=== PATIENT | female | born 1980 | race Caucasian/White ===

== ENCOUNTER 2018-12-08 06:12 | Emergency (ER) | payer SELFPAY ==
[2018-12-08 06:13] VITALS: BP 158/84; PULSE 99; RESP 16; TEMP 35.6; O2SAT 98; BMI 30.7
--- NOTE | 2018-12-08 06:34 | ED.VISSUMM ---
- ER Visit Summary Date of Service: 12/08/18 Chief Complaint: Dental block History of Present Illness: The patient is a 37 F who presents with dental pain. She does have a prior history of dental problems prior dental extractions. She sees the [facility]. Complains of left upper dental pain for the past 3 days. She has never had pain this severe. She also developed facial swelling. She states she wanted to try to wait until she could see the dentist but due to worsening symptoms presenting here. She has been taking Tylenol and ibuprofen. She reports subjective fevers. Physical Examination: Afebrile vitals unremarkable Patient has focal dental decay with dental tenderness on percussion of the left first maxillary premolar there is associated facial swelling, no focal dental abscess amenable to incision and drainage in the emergency department at this time Heart regular rate and rhythm Lungs are clear Test Results: Not indicated Emergency Department Course and Treatment: Patient was prescribed penicillin VK and [place]. She was offered a dental block here for acute pain control which she agreed to. Local supraperiosteal dental injection performed with Marcaine dental cartridge. Patient had a pain with injection but this was otherwise well-tolerated. Treatment Plan: [] Disposition: Discharge Impression: Dental abscess Dental block This note was generated with [employer] dictation software. It may contain incorrect words, spelling, and punctuation that were not noted in review of the chart prior to signing ED Disposition - Plan for ED Patient: Referrals: Claudia Goldsmith [Primary Care Provider] -
--- NOTE | 2018-12-08 06:38 | DCINST.ED_ITS ---
ED Disposition - Plan for ED Patient: Instructions: ED Abscess Dental Prescriptions: Hydrocodone Bitart/Apap 5-325 [[place] 5MG-325MG] 1 tab PO Q6H PRN PRN 3 Days #10 tab PRN Reason: Pain Penicillin V Potassium 500 mg PO 4X/DAY #40 tab Referrals: Claudia Goldsmith [Primary Care Provider] -
[2018-12-08 06:56] VITALS: RESP 16
== END 2018-12-08 06:57 | disposition home or self-care (01) ==
PROVIDERS: Emergency Provider Emergency Medicine
DX: K04.7 Periapical abscess without sinus (principal); Z72.0 Tobacco use; K02.9 Dental caries, unspecified
CPT/HCPCS: 64402; 99282

== ENCOUNTER 2019-11-03 07:05 | Emergency (ER) | payer MEDICAID, SELFPAY ==
[2019-11-03 07:07] VITALS: BP 151/86; PULSE 95; RESP 16; TEMP 36; O2SAT 99; BMI 36.2
--- NOTE | 2019-11-03 07:20 | CT_ITS ---
STUDY: CT ABDOMEN AND PELVIS WITHOUT CONTRAST REASON FOR EXAM: Female, 38 years old. RT FLANK AND RUQ PAIN. No hx cancer or diabetes. Prior and tubal ligation(clamps) RADIATION DOSAGE (If Supplied By Facility): CTDIvol = ( 22.14 ) mGy, DLP = ( 1134.07 ) mGycm TECHNIQUE: Transaxial images were obtained from the dome of the diaphragm to the symphysis pubis without oral contrast, and without intravenous contrast. Sagittal and coronal images were reconstructed. Individualized dose optimization techniques were used for this CT. COMPARISON: None. FINDINGS: The visualized lung bases are unremarkable. The visualized portions of the heart are within normal limits. Normal liver. There are multiple gallstones. Normal spleen. Normal pancreas. Normal bilateral adrenal glands. Normal right kidney. Normal left kidney. There is a small hiatal hernia. Normal small intestine. Normal colon. The appendix is visualized and appears normal. There is minimal atherosclerotic calcification of the abdominal aorta, without a demonstrated aneurysm. Normal inferior vena cava. Normal retroperitoneum. Normal urinary bladder. Evidence of bilateral tubal ligation. Normal abdominal wall. Normal osseous structures. CT/Abdomen/Pelvis without Cont IMPRESSION: Multiple gallstones. Electronically Signed: Glenn Salcedo, at 8:43 EST , Service support ,
--- NOTE | 2019-11-03 07:21 | ED.DCSUM_ITS ---
- ER Visit Summary Date of Service: 11/03/19 Chief Complaint: Right flank pain History of Present Illness: The patient is a 38 F who presents with right flank pain that has been getting worse over the past 4 days. Patient describes the pain as a constant dull ache but stabbing at times. Patient states the pain is localized to the right flank. Patient states the pain is worse with movement and with coughing. Patient admits to an episode of nausea this morning. Patient denies any vomiting. Patient denies any diarrhea, melena, or hematochezia. Patient denies any dysuria or hematuria. Patient states her last menstrual period was 3 weeks ago. Physical Examination: Vital signs are stable. Patient is afebrile. Patient is in no acute distress. Oral mucosa is pink and moist. Neck is supple. Trachea is midline. There is no JVD. Heart was regular rate and rhythm. Lungs are clear and equal bilaterally. Abdomen is soft. Bowel sounds are normal. There is no tenderness. There is no rebound or guarding. There is some mild right CVA tenderness. There is no edema or ecchymosis. Cranial nerves II through XII are intact. There are no focal motor or sensory deficits noted. Test Results: CBC and basic metabolic profile were within normal limits. Urinalysis shows leukocyte esterase of 100 with a white blood cell count of 10- 25. hCG was negative. CT scan of the abdomen pelvis was obtained. There are multiple gallstones but there are no renal or ureteral calculi. There is no other acute intra-abdominal process. Emergency Department Course and Treatment: Patient was given IV fluids, Toradol, and Zofran. Patient was feeling better on reevaluation. Patient was advised of her findings. Patient was instructed to avoid fried foods, greasy foods, and fatty foods. Patient was instructed to follow-up with her primary care physician in 3 to 5 days for reevaluation. Patient was given a prescription for short course of [place]. Patient understood and was agreeable with the plan. All questions were answered. Disposition: Discharge home Impression: 1. Cholelithiasis 2. Right flank pain This note was generated with [employer] dictation software. It may contain incorrect words, spelling, and punctuation that were not noted in review of the chart prior to signing ED Disposition - Plan for ED Patient: Disposition: Home or Assisted Living Diagnosis: Cholelithiasis Instructions: BILIARY COLIC with Gallstone (Confirmed) Prescriptions: Hydrocodone Bitart/Apap 5-325 [[place] 5MG-325MG] 1 tab PO Q6H PRN PRN 3 Days #10 tab PRN Reason: Pain Prescription Printed Referrals: Claudia Goldsmith [Primary Care Provider] - 3-5 Days
[2019-11-03] MEDS: 0.9% Normal Saline 1,000 ML 250 ML IV (07:38)
[2019-11-03] MEDS: Ketorolac 30 MG/ML Syringe IV (07:38)
[2019-11-03] MEDS: Ondansetron 4 MG/2 ML Vial IV (07:38)
[2019-11-03 07:53] LABS: Internal QC Validated? YES +Cl - CLEAR BKGD; Pregnancy, Serum, hCG Quali. NEGATIVE Negative
[2019-11-03 07:58] LABS: Anion Gap 4 (5-15); BUN 14 mg/dL (7-18); Calcium,Total 8.4 mg/dL (8.5-10.1); Chloride 110 mmol/L (98-107); EST Glomerular Filtration Rate 100 mL/min (>60); Est Glom Filt Rate - Afr Amer 121 mL/min (>60); Estimated Creatinine Clearance 122.99 ml/min; Glucose 97 mg/dL (74-106); Sodium Level 139 mmol/L (136-145)
[2019-11-03 08:10] LABS: Absolute Lymphocyte Count 2.09 X10^3/uL (0.83-4.51); Absolute Neutrophil Count 4.5 X10^3/uL (2.0-7.7); Basophil# 0.04 X10^3/uL; Basophil% 0.6 % (0-1); Eosinophils% 1.4 % (0-5); Hematocrit 40.6 % (37-47); Hemoglobin 12.9 g/dL (12.0-15.0); Lymphocyte # 2.09 X10^3/ul (4.0); Lymphocyte % 29.2 % (19-41); Mean Corp Hgb Conc 31.8 g/dL (32-36); Mean Corpuscular Hgb 26.3 pg (27.0-32.0); Mean Corpuscular Volume 82.9 fL (81-99); Mean Platelet Vol. 11.1 fl (6.2-12.0); Monocyte# 0.39 X10^3/uL; Monocyte% 5.5 % (0-10); NRBC Flagged by Analyzer 0 % (0-5); Neutrophil % 62.9 % (47-70); Platelet Count 216 K/mm3 (150-450); RBC Distribution Width CV 13.3 % (11.6-14.6); RBC Distribution Width SD 40.4 fl (35.1-43.9); White Blood Count 7.2 K/mm3 (4.4-11.0)
[2019-11-03 08:27] LABS: Mucous, Urine 0 SEEN /hpf (<or=2+)
[2019-11-03 08:34] LABS: Color, Urine Yellow (Yellow); Glucose, Dipstick Normal (Normal); Ketone-Dipstick Negative (Negative); Leukocyte Esterase-Dipstick 100 /ul (Negative); Nitrite-Dipstick Negative (Negative); Occult Blood-Urine Negative /ul (Negative); Protein-Dipstick Negative (Negative); Specific Gravity, Urine 1.015 (1.002-1.030); Urine Bilirubin Dipstick Negative (Negative); Urine Clarity Clear (Clear); Urine Urobilinogen Normal (Normal)
[2019-11-03 08:51] LABS: Bacteria RARE /hpf (None Seen); Red Blood Cells-Urine 0-5 SEEN /hpf (0-5); Squamous Epithelial Cells - UA 0-5 SEEN /hpf (5-10); White Blood Cells 10-25 SEEN /hpf (0-5)
[2019-11-03 09:26] VITALS: BP 122/67; PULSE 79; RESP 16; O2SAT 96
== END 2019-11-03 09:27 | disposition home or self-care (01) ==
PROVIDERS: Emergency Provider Emergency Medicine
DX: K80.20 Calculus of gallbladder without cholecystitis without obstruction (principal); E66.9 Obesity, unspecified; F17.210 Nicotine dependence, cigarettes, uncomplicated
CPT/HCPCS: 74176; 80048; 81001; 84703; 85025; 96361; 96374; 96375; 99283; J7030; A4216; J2405

== ENCOUNTER → 2019-11-11 10:08 | Outpatient (CLI) | payer MEDICAID, SELFPAY ==
[2019-11-03 07:07] VITALS: BMI 36.2
--- NOTE | 2019-11-11 10:15 | NM_ITS ---
CLINICAL: 38-year-old female with reported history of abdominal pain. RADIONUCLIDE HEPATOBILIARY SCINTIGRAPHY COMPARISON: CT of the abdomen-pelvis report 11/03/2019 FINDINGS: Following the intravenous administration of 5.2 mCi of 99m Tc Mebrofenin, hepatobiliary images reveal: 1. Relatively prompt and homogeneous radiopharmaceutical concentration is noted by a normal sized liver. No parenchymal defects are identified. 2. Gallbladder activity is identified at 10 minutes post radiopharmaceutical administration. 3. Small intestinal tract is not visualized during 60 minutes of pre-CCK sequential imaging. Small bowel activity is identified following the administration of cholecystokinin. 4. Washout of the radiopharmaceutical by the hepatic parenchyma appears qualitatively normal. Cholecystokinin (0.02 ug/kg) was administered intravenously over a 30-minute period. The post CCK gallbladder ejection fraction calculated at 24 minutes following Cholecystokinin administration was noted to be 68.0 % (normal greater than 35%). During 30 minutes of post CCK imaging, there is no scintigraphic evidence of reflux of the radiotracer into the common hepatic duct or refilling of the gallbladder. NM/Hepatobilliary Img w/Pharm Int IMPRESSION: 1. NORMAL 99m Tc Mebrofenin hepatobiliary imaging examination with Cholecystokinin. A. A gallbladder ejection fraction calculated to be greater than 35% following the administration of Cholecystokinin makes the probability of functional hepatobiliary disease (gallbladder and/or sphincter of Oddi dyskinesia) and/or organic hepatobiliary disease (chronic acalculous cholecystitis and/or cystic duct syndrome) to be low. (Julio Turner et al, Journal of Nuclear Medicine 32:1695, 1991). Electronically Signed: Haja Friend DO at 10:06 EST Tel , Service support ,
== END ==
PROVIDERS: Referring Provider Nurse Practitioner Family; Visit Provider Nurse Practitioner Family
DX: K80.80 Other cholelithiasis without obstruction (principal)
CPT/HCPCS: 78227; A9537; J2805

== ENCOUNTER 2019-11-18 09:09 | Day surgery (SDC) | payer MEDICAID, SELFPAY ==
[2019-11-17 10:15] VITALS: BMI 36.2
[2019-11-17 11:53] LABS: AST(SGOT) 10 U/L (15-37); Alanine Aminotransfer ALT/SGPT 25 U/L (13-56); Albumin, Serum 3.7 g/dL (3.2-5.0); Alkaline Phosphatase 94 U/L (45-117); Bilirubin, Direct 0.11 mg/dL (0.00-0.30); Globulin 3.7 g/dL (2.2-4.2); Protein, Total 7.4 g/dL (6.4-8.2)
[2019-11-18] VITALS (10 sets, daily range): BP systolic 109–137; BP diastolic 64–87; PULSE 59–80; RESP 16; TEMP 36.3–36.7; O2SAT 91–100; BMI 38.0
[2019-11-18 08:22] LABS: Thyroid Stim Hormone (TSH) 1.93 uIU/mL (0.358-3.74)
--- NOTE | 2019-11-18 09:14 | EKG12_ITS ---
Test Reason : PRE-OP Blood Pressure : / mmHG Vent. Rate : 057 BPM Atrial Rate : 057 BPM P-R Int : 140 ms QRS Dur : 092 ms QT Int : 438 ms P-R-T Axes : 055 010 029 degrees QTc Int : 426 ms Sinus bradycardia Otherwise normal ECG When compared with ECG of 25-FEB-2007 07:26, No significant change was found Confirmed by ELKE HARTMAN ([id number]), publication editor MYRON MO ([id number]) on 11/20/2019 10:48:56 AM Referred By: Ameena Genao Confirmed By:ELKE HARTMAN
[2019-11-18] MEDS: Lactated Ringers 1,000 ML 100 ML IV (09:44)
--- NOTE | 2019-11-18 10:25 | PCM.HP.BLA ---
History and Physical Date of Admission: 11/18/19 Date of Service: 11/17/19 MR#: [id number] Acct: [id number] Name: SAVANNA KENNY Rep #: [id number] : 1980 Provider: Ameena Genao MD Age/Sex: 38/F Location: [facility] Status: Signed Intake Vital Signs 11/17/19 BMI 36.2 11/17/19 Height 5 ft 11 in 11/17/19 Weight: 276 lb 11/17/19 BMI 38.5 11/17/19 BP 143/96 H 11/17/19 Blood Pressure Location Rt brachial 11/17/19 Position Sitting 11/17/19 Respiration 18 11/17/19 Pulse 87 11/17/19 Pulse Source Monitor 11/17/19 Temp 97.8 F 11/17/19 Temp Source Oral 11/17/19 Pulse Oximetry (%) 100 11/17/19 Oxygen Delivery Method room air Intake Visit Reasons: CHOLELITHIASIS, U/S @ [facility] Chief Complaint: abdominal pain [employer] Required: No Is patient in pain?: No Allergies No Known Allergies Allergy (Verified 11/17/19 10:15) Medications NK 11/17/19 [History Confirmed 11/17/19] [facility] Medical History Abdominal pain (Acute) Cholelithiasis (Acute) Diarrhea (Acute) GERD (gastroesophageal reflux disease) (Acute) Nausea (Acute) Surgical History (Updated 11/17/19 @ 10:12 by Bre Heredia) History of section (Acute) Family History (Updated 11/17/19 @ 10:13 by Bre Heredia) Aunt Breast cancer Social History (Updated 11/17/19 @ 10:43 by Ameena Genao MD) Smoking Status: Current every day smoker alcohol intake: current alcohol intake frequency: holidays/special occasions only substance use type: does not use HPI HPI HPI: SAVANNA KENNY, is a 38 F who presents to the office today for cholelithiasis, low ejection fraction on HIDA. Patient states that since 10/31/2019 patient had right upper quadrant pain starting overnight. Pain continued to get worse and patient did go to the ER on 11/03/2019. Patient's labs are normal at that time but LFTs were not done, CAT scan did show multiple large gallstones. Patient followed up with her PCP did get a HIDA scan which showed a low ejection fraction. Patient continued to have right upper quadrant abdominal pain currently it ranges between 3/10 to an 8/10. Patient currently eating only broth/applesauce, etc. patient did get a prescription from omeprazole from her PCP as her CT did states she had a small hiatal hernia. Patient states she does have reflux symptoms about 3-4 times during a week. But really depends on what she eats and she does try to avoid that food. HPI HPI HPI: SAVANNA KENNY, is a 38 F who presents to the office today for ROS General General: No weight change, fatigue, colon cancer, breast cancer or weakness HEENT HEENT: No difficulty swallowing, eye injury, eye surgery, swollen glands or hoarseness Endo Endocrine: No thyroid disease, diabetes mellitus, thyroid cancer, Hair loss, heat intolerance or cold intolerance Skin Skin: No rash or changing moles Breast Breast: No left breast lump, right breast lump, nipple discharge, breast pain, abnormal mammogram, abnormal US or breast enlargement Musc Musculoskeletal: No back problems, arthritis, rheumatoid arthritis, gout or joint pain Cardio Cardiovascular: No murmur, pacemaker, heart disease, atrial fibrillation, high blood pressure, heart attack, heart stent, palpitations, shortness of breat with exertion or chest pain Psych Psychiatric: No depression, anxiety or hearing voices Resp Respiratory: No shortness of breath, No sleep apnea, No cough, No COPD, No asthma, No emphysema, No wheezing Gastro Gastrointestinal: Yes abdominal pain, Yes nausea or vomiting, Yes diarrhea, No constipation, No blood in stool, Yes acid reflux, No hemorrhoids, No ulcers, Yes gallbladder problem, No black,tarry stools Fitz Hematologic: No blood thinners, No blood disorders, No bleeding, No anemia, No blood clots Neuro Neurologic: No system reviewed and no additional complaints, except as docu, No as per HPI, No abnormal walking, No abnormal hearing, No abnormal movements, No abnormal speech, No behavioral changes, No burning sensations, No confusion, No seizure-like activity, No unsteadiness, No dizziness, No localized weakness, No frequent falls, No headache(s), No lack of coordination, No loss of vision, No memory loss, No numbness, No other visual disturbances, No radiating pain, No restless legs, No sensory deficit, No fainting, No tingling, No tremor(s), No weakness, No other Exam Const General: cooperative, comfortable, no acute distress Chest Breast Palpation: No nipple discharge Resp Effort & Inspection: normal respiratory effort Cardio Rate: regular rate Heart Sounds: no murmurs GI Inspection: non-distended, obesity Palpation: soft, no guarding, tender (Right upper quadrant, no peritoneal signs) Neuro Cranial Nerves: CN's II-XI intact bilaterally Psych Affect: normal affect Assessment & Plan Problems 1. Cholelithiasis K80.20 Plan Patient get LFTs today. We will schedule surgery for tomorrow. Reviewed the anatomy with the patient and discussed the procedure: laparoscopic cholecystectomy with cholangiograms, possible open. Review risks including but not limited to bleeding, infection, hernia, bile leak, retained gallstones requiring another procedure ERCP- Endoscopic Retrograde Cholangiopancreatography, injury to another organ (bile ducts, common bile duct, small bowel, etc.) may require transfer to tertiary care facility and conversion to an open procedure. All questions were answered. Amenea Genao M.D. Pager: [phone] [facility] [address] [place] [address], [address] [place] [address] Office: [phone] Orders Orders: Liver Profile Today K80.20 Plan Detail Follow Up lap marvin tomorrow Coding Level of Care Code Off vis,new,level 3 Diagnoses Cholelithiasis K80.20 11/17/19 1043 <Electronically signed by Ameena Genao MD> Date Ameena Genao MD
--- NOTE | 2019-11-18 11:00 | GALL_PTH ---
PATIENT: SAVANNA KENNY LOC: [facility] U#:[id number] AGE/SX: 38/F ROOM: RE11/18/[address]: Dr. Ameena Genao MD : 1980 BED: DIS: 11/18/2019 SPEC #: [id number] RECD: 11/19/19 08:13 STATUS: FRANCOIS MIRYAM #: [id number] JOY: 11/18/19 11:[address]: Ameena Genao DEPT: SURGICAL PATHOLOGY RECD BY: Ari Montalvo ENTERED: 11/19/19 08:32 SP TYPE: HARITHA LEÓN DR: Dr. Claudia Goldsmith Tissues: Gallbladder, NOS Procedures: Surgery Specimen Level III HEADER OPERATION: Laparoscopic cholecystectomy with IOC PRE-OP DIAGNOSIS: Cholelithiasis TISSUE SUBMITTED: Gallbladder MICROSCOPIC DIAGNOSIS Gallbladder, cholecystectomy: Chronic cholecystitis and cholelithiasis. SJ:stephany 11/20/19 MICROSCOPIC DESCRIPTION Slides are reviewed. GROSS DESCRIPTION Received is one container labeled with the patient's name and designated gallbladder. The specimen consists of a previously, partially opened gallbladder measuring 8.5 cm in length and 3 cm in diameter. The external surface is pink-ordoñez, smooth and glistening for the most part. Focally it is granular, hemorrhagic and contains cautery artifact. Present in the gallbladder and also in the container are multiple multifaceted greenish-brown stones measuring in aggregate 6 x 5 x 3.5 cm and 0.3 to 2.5 cm in greatest dimension. The mucosa is bile-stained and without any mass lesions. The gallbladder wall measures up to 0.3 cm in thickness. Cemetery Manager sections from the gallbladder and the cystic duct are submitted in one cassette. / SJ:stephany 11/19/19 TC:3 CPT: 30542
[2019-11-18] MEDS: Bupivacaine Mpf 0.5% 30 ML VIAL (11:02)
[2019-11-18] MEDS: Cefazolin 2 GM in 0.9% Normal Saline 100 ML IV (11:13)
--- NOTE | 2019-11-18 11:45 | RAD_ITS ---
STUDY: INTRAOPERATIVE CHOLANGIOGRAM. REASON FOR EXAM: Female, 38 years old. Lap marvin with IOC FLUOROSCOPY TIME (if supplied): ( 5.7 seconds ) minutes/seconds TECHNIQUE: An intraoperative cholangiogram was performed by the surgeon. Imaging was submitted. COMPARISON: None. FINDINGS: The visualized intrahepatic biliary ducts as well as the common bile duct are unremarkable. No intraluminal filling defect is seen. There is free flow of contrast into the duodenum. RAD/Cholangiogram/ O R,Initial IMPRESSION: Unremarkable intraoperative cholangiogram. Electronically Signed: Glenn Salcedo, at 14:11 EST , Service support ,
--- NOTE | 2019-11-18 13:03 | OP.PCM_ITS ---
Report of Operation Date of Procedure: 11/18/19 Pre-Operative Diagnosis: Symptomatic cholelithiasis Post-Operative Diagnosis: Same Surgery/Procedure Performed:: Laparoscopic cholecystectomy with cholangiograms women's basketball coach: Danette Crawford Type of Anesthesia:: General/Supplemental Anesthesiologist: Derick Mcdaniel Special Medications: Ancef 2 g IV x1 Specimen's removed: Gallbladder and stones Estimated Blood Loss (mL): 10 cc Fluids Replaced: 1000 cc Description of Procedure: Indications this is a 38 year-old female who developed abdominal pain/nausea/vomiting and on workup was found to have cholelithiasis?largest one about 3 cm, with a normal common bile duct and normal LFTs. Laparoscopic cholecystectomy was elected. Description procedure: The patient was placed on operating table in supine position. General Anesthesia was induced. A timeout was completed verifying correct patient, procedure, site, position and special equipment prior to beginning procedure. The abdomen was prepped and draped in usual sterile fashion. An incision was made in the natural skin line above the umbilicus. The fascia was elevated and incised. The peritoneum was elevated and incised. Entry into the peritoneum was confirmed visually and no bowel was noted in the vicinity of the incision. Clarke trocar was placed. The abdomen was insufflated with carbon dioxide to a pressure of 12-15 mmHg. Patient tolerated insufflation well. The laparoscope was then inserted and abdomen inspected. No injuries from initial trocar placement were noted. Additional trochars were then inserted in the following locations 5 mm trocar in the epigastrium and 2 more 5 mm trochars along the right costal margin. The abdomen was inspected no abnormalities were found. The table is placed in reverse Trendelenburg position with the right side up. The adhesions between the gallbladder and omentum were lysed sharply. The dome of the gallbladder was grasped with atraumatic grasper passed through the lateral port and retracted over the dome of the liver. Infundibulum was then grasped with atraumatic grasper through the midclavicular port and retracted to the right lower quadrant. This maneuver exposed Calot's triangle. The peritoneum overlying the gallbladder infundibulum was then incised and cystic duct and artery identified and circumferentially dissected. Craig catheter was used for cholangiograms. The cholangiogram showed good filling of the common bile duct into the duodenum with no filling defects, good filling of the right and left bile ducts as well. The cystic duct and artery were then doubly clipped and divided close to the gallbladder. The gallbladder then dissected from its peritoneal attachments by electrocautery. Hemostasis was checked and the gallbladder and contained stones were removed using the endoscopic retrieval bag through the umbilical port which need to be enlarged due to the size of the stones. The gallbladder is passed off table as specimen. The gallbladder fossa was copiously irrigated with saline and hemostasis obtained. There is no evidence of bleeding from the gallbladder fossa or cystic artery leakage of bile from the cystic duct stump. Secondary trochars removed under direct vision. No bleeding was noted the t rocar sites. The laparoscope was withdrawn and umbilical trocar removed. The abdomen was allowed to collapse. The fascia of the 12 mm trocar was closed with two [id number] 0 PDS suture. The skin was closed with sutures of 4-0 Monocryl and Steri-Strips. The orogastric tube was removed and the patient was extubated. The patient tolerated procedure well and was taken to the postanesthesia care unit in stable condition. - Complications none
--- NOTE | 2019-11-18 13:15 | PCM.DC.GB ---
Discharge Diet: Light diet - advance as tolerated Discharge Activity: May not drive while taking narcotic pain medications. May shower in (days): 1 Lifting Restrictions: No lifting > 20 lbs x 3 wks(slowly advance), no strenuous exercise for 5 wk Call your doctor if your incision/area has: Continuous Slow Oozing, Sudden Increased Bleeding, Increased Pain/ Swelling, Increased Redness, Foul Smelling Discharge, Swelling at the incision site Call your doctor if you observe: Fever of 101 or Higher Remove Dressing in (days):: 1 - After 24 hours okay to shower with the OpSite on, remove op sites after and keep Steri's on for 7 to 10 days for now follow-up in 10 days okay to remove Additional Instructions: Okay to take ibuprofen 400-600 mg PO q6hr PRN along with the Percocet. Avoid Tylenol since there is already Tylenol in the Percocet. Take all pain meds with food. Percocet can cause constipation recommend taking daily stool softener (i.e. Colace/docusate) while taking the pain meds. Recommend starting some MiraLAX in 1 to 2 days if no bowel movement. If still no bowel movement following day recommend taking magnesium citrate half the bottle and waiting 4-6 hours if still no results take the other half the bottle. Allergies/Adverse Reactions: Allergies latex Allergy (Verified 11/18/19 09:16) Other Medications to take at Discharge Omeprazole 40 mg PO DAILY 11/17/19 Oxycodone HCl/Acetaminophen [Percocet 5/325] 1 - 2 tab PO Q6H PRN PRN 4 Days #25 tab 11/18/19 The following prescriptions were given: Oxycodone HCl/Acetaminophen [Percocet 5/325] 1 - 2 tab PO Q6H PRN PRN 4 Days #25 tab PRN Reason: Pain Transmission Status: Received by [facility]30 Orders to be completed after discharge: Thyroid Stim Hormone (TSH) Time Frame: 11/18/19, Facility: [facility], Location: Laboratory Primary Care Physician: Claudia Goldsmith [Primary Care Provider] - Test Results: Test results from this visit will be discussed in further detail at your follow-up appointment, if applicable. Please Follow Up With: Ameena Genao MD - After 5 PM and on the weekends call [phone] with any concerns When: Call the office for follow-up appointment in 2 weeks. Proposed Discharge Date: 11/18/19
== END 2019-11-18 16:23 | disposition home or self-care (01) ==
LOC: SDC 09:09 → AC 09:10
PROVIDERS: Referring Provider Surgery; Visit Provider Surgery
PROC: (CPT 47610; principal; 2019-11-18 10:40)
DX: K80.10 Calculus of gallbladder with chronic cholecystitis without obstruction (principal); K44.9 Diaphragmatic hernia without obstruction or gangrene; F17.200 Nicotine dependence, unspecified, uncomplicated
CPT/HCPCS: 47563; 36415; 74300; 76000; 80076; 84443; 88304; 93005; J7120; J2405

== ENCOUNTER 2023-10-23 16:45 | Emergency (ER) | payer MEDICAID, SELFPAY ==
[2023-10-23 16:45] VITALS: BP 167/108; PULSE 86; RESP 16; TEMP 36.8; O2SAT 100; BMI 31.1
[2023-10-23] MEDS: Ibuprofen 600 MG Tablet PO (17:36)
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
== END 2023-10-23 17:50 | disposition home or self-care (01) ==
PROVIDERS: Emergency Provider Emergency Medicine; Visit Provider Emergency Medicine
DX: T20.26XA Burn of second degree of forehead and cheek, initial encounter (principal); T23.191A Burn of first degree of multiple sites of right wrist and hand, initial encounter; X10.2XXA Contact with fats and cooking oils, initial encounter; Y93.G3 Activity, cooking and baking; K21.9 Gastro-esophageal reflux disease without esophagitis; Z79.899 Other long term (current) drug therapy; Z90.49 Acquired absence of other specified parts of digestive tract; F17.210 Nicotine dependence, cigarettes, uncomplicated; T21.12XA Burn of first degree of abdominal wall, initial encounter; T31.0 Burns involving less than 10% of body surface
CPT/HCPCS: 99283